=== PATIENT | male | born 1940 | race Caucasian/White ===

== ENCOUNTER 2020-03-26 16:08 | Emergency (ER) | payer MEDICAID, MEDICARE ==
[~2020-03-26] VITALS: Ht 175.3 cm; Wt 89.0 kg
[~2020-03-26 16:08] MED LIST: ALPR0.5T7 PO; CLON1TAB PO; CLOP75TA52 PO; HYDR2TAB29 PO; HYDR4DIS PO; IBUP-1623 PO; MORP100C15 PO; OXYC20TA2 PO; TAMS-11 PO; VALA500T4 PO; ZOLP5TAB6 PO; [UNRECOGNIZED DRUG - CODE] PO
--- NOTE | 2020-03-26 16:25 | NUR ---
PT WHEELED BACK TO ROOM, C-COLLAR IN PLACE, CONVERSING WITH CYLINDER WORKER. ERP TO BEDSIDE. PT SITTING IN BED, NO ACUTE SIGNS OF DISTRESS. WILL CONTINUE TO MONITOR AND WATCH FOR ORDERS.
[2020-03-26] MEDS ORDERED: HYDROmorphone 1 MG/ML, 1ML INJ ONE (16:45)
[2020-03-26] MEDS ORDERED: ONDANSETRON ODT 4 MG ONE (16:45)
--- NOTE | 2020-03-26 16:53 | NUR ---
PT MEDICATED TO JAN, AND TRANSPORTED TO IMAGING.
[2020-03-26] MEDS ORDERED: HYDROmorphone 1 MG/ML, 1ML INJ IM ONE (17:00)
[2020-03-26] MEDS ORDERED: ONDANSETRON ODT 4 MG PO ONE (17:00)
--- NOTE | 2020-03-26 17:11 | NUR ---
PT BACK FROM IMAGING, TALKING WITH VICE PRESIDENT & GENERAL MANAGER [employer] [place], NO SIGNS OF DISTRESS, WILL CONTINUE TO MONITOR.
--- NOTE | 2020-03-26 17:41 | NUR ---
TASK RN NOTE: PT REMAINS IN IMAGING.
--- NOTE | 2020-03-26 17:56 | NUR ---
PT BACK FROM IMAGING, STATES SOME RELEIF FROM PAIN, NO ACUTE SIGNS OF DISTRESS. WILL CONTINUE TO MONITOR.
[2020-03-26 18:32] VITALS: BP 153/69
== END 2020-03-26 18:35 | disposition home or self-care (01) ==
LOC: ED 17:09
DX: S16.1XXA Strain of muscle, fascia and tendon at neck level, initial encounter (principal); S20.212A Contusion of left front wall of thorax, initial encounter; I10 Essential (primary) hypertension; I25.10 Atherosclerotic heart disease of native coronary artery without angina pectoris; F17.210 Nicotine dependence, cigarettes, uncomplicated; W18.30XA Fall on same level, unspecified, initial encounter; Y93.89 Activity, other specified; Y92.410 Unspecified street and highway as the place of occurrence of the external cause; Y99.8 Other external cause status
CPT/HCPCS: 71101; 72125; 96372; 99284; 99406; J1170